=== PATIENT | female | born 1965 | race Caucasian/White ===

== ENCOUNTER 2023-03-27 13:07 | Outpatient (CLI) | payer OTHER, SELFPAY | END 2023-03-27 13:08 | disposition home or self-care (01) | PROVIDERS: PCP Family Medicine; Referring Provider Family Medicine; Visit Provider Family Medicine | DX: Z00.00 Encounter for general adult medical examination without abnormal findings (principal); E03.9 Hypothyroidism, unspecified; Z13.6 Encounter for screening for cardiovascular disorders | CPT/HCPCS: 80053; 80061; 84443 ==

== ENCOUNTER 2023-12-18 10:17 | Outpatient (CLI) | payer OTHER, SELFPAY ==
--- OUTSIDE RECORDS SUMMARY | 2023-12-18 10:26 | XMS_ITS | Encounter Summary ---
Author Organization [facility] Address [address] [place] [id number] Care Team Providers Care Meat Processor Name Role Phone System, Provider Not In Primary Care Provider Un available Wild Rizo MD Unavailable [phone] Reason for Visit * Reason Comments Clinic Care Coordination - Follow-up FLP /alt results Encounter Details Date Type Department Care Team (Latest Contact Info) Description 09/22/2023 Care Coordination [facility] [address] [place] [id number] Nereida Marshall, RN Clinic Care Coordination - Follow-up (FLP/alt results) Social History Tobacco Use Types Packs/Day Years Used Date Smoking Tobacco: Never Smokeless Tobacco: Never Alcohol Use Standard Drinks/Week Comments Yes 0 (1 standard drink = 0.6 oz pur e alcohol) 5 DRINKS PER WEEK PHQ-2 Answer Date Recorded PHQ-2 Score 0 06/14/2023 Adolescent Education Answer Date Record ed Getting School Help Needed Not on file 04/02 Sex and Gender Information Value Date Recorded Sex Assigned at Not on file Gender Identity Not on file Sexual Orientation Not on file documented as of this encounter Progress Notes * Nereida Marshall RN - 09/22/2023 3:[address] coronary calcium score results from 09/22/23 noted. Pt had 06/14/23 visit with for hypercholesterolemia and a strong family history of premature coronary artery disease and sudden , along with an abnormal ECG. Pt's stress echo 07/14/23 was negative for ischemia. Pt requested further cardiac risk stratification after her stress echo d/t her strong family hx of premature sudden cardiacdeath so ordered the CT calcium score. Pt was started on rosuvastatin 10 mg daily at her visit on 06/14/23, and a 3 month FLP/alt lab was ordered. The FLP lab has not been set up yet. I will route an update on CT calcium score results to . I will have pt set up her FLP lab when I call her with results. Bev CHASE September 22, 2023, 4:00 PM CORONARY ARTERY CALCIUM SCORES: Left main coronary artery: 0 Left anterior descending coronary artery: 85 Circumflex coronary artery: 0 Right coronary artery: 0 TOTAL CALCIUM SCORE: 85 The total Agatston calcium score is 85, placing this individual in the 92 percentile for age and sex matched controls. Please review Radiology report for incidental noncardiac findings that will follow separately IMPRESSION: 1. No significant soft tissue abnormalities identified. 2. Refer to cardiology report regarding cardiac and vascular findings. * Nereida Marshall RN - 09/22/2023 3:55 PM CDT My chart update has been sent to pt regarding 's response to her CT calcium score results. Bev CHASE September 25, 2023, 1:25 PM * Alba Samaniego RN - 09/22/2023 3:55 PM CDT Routed to Dr. Rizo. Further adjustments to statin dosing pending review of lab results. Alba Samaniego RN on 10/12/2023 at 1:50 PM Component Latest Ref Rng 10/09/2023 9:32 AM Cholesterol <200 mg/dL 164 Triglycerides <150 mg/dL 86 HDL Cholesterol >=50 mg/dL 65 LDL Cholesterol Calculated <=100 mg/dL 82 Non HDL Cholesterol <130 mg/dL 99 Patient Fasting? Yes ALT 0 - 50 U/L 51 (H) Legend: (H) High documented in this encounter Miscellaneous Notes * Telephone Encounter - Wild Rizo MD - 10/20/2023 4:35 PM CDT Cholesterol numbers look good to me. Her LDL is appropriately low and she has an excellent HDL. No further medication adjustments at this time. The ALT is borderline high. We will keep an eye on that. I doubt that it will become an issue. She should be on aspirin 81 mg daily as well. Wild Rizo MD * Telephone Encounter - Wild Rizo MD - 09/25/2023 12:46 PM CDT Mild coronary artery disease based on a coronary artery calcification score of 85, all in the LAD. Based on her normal stress test recently, we will continue to treat this situation medically and shoot for an LDL cholesterol less than 100. I will await the results of her upcoming lipid panel and adjust her rosuvastatin accordingly. Wild Rizo MD * Addendum Note - Nereida Marshall RN - 09/22/2023 3:55 PM CDTAddended by: NEREIDA MARSHALL on: 10/23/2023 10:26 AM Modules accepted: Orders documented in this encounter Plan of Treatment Not on file documented as of this encounter Visit Diagnoses Not on filedocumented in this encounter Care Teams Meat Processor Relationship Specialty Start Date End Date System, Provider Not In PCP - General Clinic 06/14/23 Wild Rizo MD [id number] [place] [id number] Assigned Heart and Vascular Provider 06/17/23 documented as of this encounter
--- OUTSIDE RECORDS SUMMARY | 2023-12-18 10:26 | XMS_ITS | Clinical Summary ---
Author Organization [facility] Address [address] [place] [id number] Care Team Providers Care Branch Services Manager Name Role Phone System, Provider Not In Primary Care Provider Un available Wild Rizo MD Unavailable [phone] Allergies No known active allergies Medications Medication Sig Dispensed Refills Start Date End Date Status levothyroxine (SYNTHROID/LEVOTHROID ) 112 MCG tablet Take 112 mcg by mouth daily Active rosuvastatin (CRESTOR) 10 MG tabletIndications:Hyp erlipidemia LDL goal <100 Take 1 tablet (10 mg) by mouth daily 90 tablet 3 06/14/2023 Active aspirin 81 MG EC tablet Take 1 tablet (81 mg) by mouth daily 10/23/2023 Active Encounters Date Type Department Care Team Description 10/09/2023 9:30 AM CDT Lab [facility] Laboratory [address] [place] [phone] Hyperlipidemia LDL goal <100 10/09/2023 Travel 09/22/2023 Care Coordination [facility] [address] [place] [phone] Nereida Clark RN Clinic Care Coordination - Follow-up (FLP/alt results) 09/21/2023 12:31 PM CDT - 09/21/2023 11:59 PM CDT Hospital Encounter [facility] Imaging [id number] [facility] [address] [place] [phone] Wild Rizo MD Family history of ischemic heart disease; Hyperlipidemia LDL goal <100; Nonspecific abnormal electrocardiogram (ECG) (EKG) Discharge Disposition: Home or Self Care 09/21/2023 Travel from Last 3 Months Family History Medical History Relation Comments Myocardial Infarction Brother Coronary Artery Disease Father Hypertension Father Myocardial Infarction Maternal Aunt Myocardial Infarction Maternal Grandfather Myocardial Infarction Maternal Uncle Relation Status Comments Brother (Age 55) Father Maternal Aunt Maternal Grandfather Maternal Uncle Social History Tobacco Use Types Packs/Day Years Used Date Smoking Tobacco: Never Smokeless Tobacco: Never Tobacco Cessation:Counseling Given: Not Answered Alcohol Use Standard Drinks/Week Comments Yes 0 [...] on file Sexual Orientation Not on file Last Filed Vital Signs Vital Sign Reading Time Taken Comments Blood Pressure 146/97 06/14/2023 10:20 AM OPERATOR/ASSISTANT FOREMAN Pulse 70 06/14/2023 10:20 AM OPERATOR/ASSISTANT FOREMAN Temperature - - Respiratory Rate - - Oxygen Saturation - - Inhaled Oxygen Concentration - - Weight 60.2 kg (132 lb 11.2 oz) 023 10:20 AM OPERATOR/ASSISTANT FOREMAN Height 160 cm (5' 3) 06/14/2023 10:20 AM OPERATOR/ASSISTANT FOREMAN Body Mass Index 23.51 06/14/2023 10:20 AM OPERATOR/ASSISTANT FOREMAN Plan of Treatment Health Maintenance Due Date Last Done Comments ADVANCE CARE PLANNING 1966 ANNUAL REVIEW OF HM ORDERS 1966 CT COLONOGRAPHY 1966 FIT 1966 FLEX SIG 1966 sDNA (Cologuard) 1966 HIV SCREENING 1981 HEPATITIS C SCREENING 1984 HEPATITIS B IMMUNIZATION (1 of 3 - 19+ 3-dose series) 1985 ZOSTER IMMUNIZATION (1 of 2) 2016 TSH W/FREE T4 REFLEX 07/06/2021 07/06/2020 PHQ-2 (once per calendar year) 2023 06/14/2023 YEARLY PREVENTIVE VISIT 06/05/2024 06/05/20 23, 04/18/2022, 04/10/2020 LIPID 10/08/2024 10/09/2023, 05/11, 07/06/2020 MAMMO SCREENING 08/29/2025 08/29/2023, 02/2 , 08/04/2022, Additional history exists GLUCOSE 06/05/2026 06/05/2023, 07/06/2020 HPV TEST 06/05/2028 06/05/2023 PAP 06/05/2028 06/05/2023 COLONOSCOPY 09/10/2029 09/11/2019 COLORECTAL CANCER SCREENING 09/10/2029 DTAP/TDAP/TD IMMUNIZATION (3 - Td or Tdap) 03/27/2031 03/27/2021, 05/23/2007 COVID-19 Vaccine Completed 04/17/2023, 09/2021, 05/10/2021, Additional history exists INFLUENZA VACCINE Completed 05/08/2023, , 05/03/2021, Additional history exists HPV IMMUNIZATION Aged Out No longer e ligible based on patient's age to complete this topic IPV IMMUNIZATION Aged Out No longer e ligible based on patient's age to complete this topic MENINGITIS IMMUNIZATION Aged Out No l onger eligible based on patient's age to complete this topic Pneumococcal Vaccine: Pediatrics (0 to 5 Years) and At-Risk Patients (6 to 64 Years) Aged Out No longer eligible based on patient's age to complete this topic RSV MONOCLONAL ANTIBODY Aged Out No l onger eligible based on patient's age to complete this topic Procedures Procedure Name Priority Date/Time Associated Diagnosis Comments ALT Routine 10/09/2023 9:32 AM CDT Hyperlipidemia LDL goal <100 LIPID PROFILE Routine 10/09/2023 9:32 AM CDT Hyperlipidemia LDL goal <100 CT CALCIUM SCREENING Routine 09/21/2023 12:57 PM CDT Family history of ischemic heart disease Hyperlipidemia LDL goal <100 Nonspecific abnormal electrocardiogram (ECG) (EKG) RADIOLOGIST CONSULT FOR CARDIOLOGY Routine 09/21/2023 12:57 PM CDT Family history of ischemic heart disease Hyperlipidemia LDL goal <100 Nonspecific abnormal electrocardiogram (ECG) (EKG) MA SCREENING BILATERAL W/ MARINO Routine 08/29/2023 8:15 AM OPERATOR/ASSISTANT FOREMAN GYNECOLOGIC CYTOLOGY Routine 06/05/2023 4:04 PM OPERATOR/ASSISTANT FOREMAN Encounter for gynecological examination (general) (routine) without abnormal findings HPV HIGH RISK TYPES DNA CERVICAL Routine 06/05/2023 4:04 PM OPERATOR/ASSISTANT FOREMAN Encounter for gynecological examination (general) (routine) without abnormal findings COMPREHENSIVE METABOLIC PANEL Routine 06/05/2023 3:15 PM OPERATOR/ASSISTANT FOREMAN Encounter for screening, unspecified TSH Routine 07/06/2020 from Last 3 Months or Most Recently Relevant to Health Maintenance Results * Lipid Profile (10/09/2023 9:32 AM CDT) Pathologist [facility] Cholesterol 164 <200 mg/dL 10/09/2023 2:37 PM CDT [facility] Triglycerides 86 <150 mg/dL 10/09/2023 2:37 PM CDT [facility] Direct Measure HDL 65 >=50 mg/dL 2023 2:37 PM CDT [facility] LDL Cholesterol Calculated 82 <=100 mg/dL 10/09/2023 2:37 PM CDT [facility] Non HDL Cholesterol 99 <130 mg/dL 10/09/2023 2:37 PM CDT [facility] Patient Fasting > 8hrs? Yes 10/09/2023 2:37 PM CDT [facility] Blood BLOOD SPECIMEN / Unknown Venipuncture / Unknown 10/09/2023 9:32 AM CDT 10/09/2023 9:32 AM CDT Narrative [facility] - 10/09/2023 2:37 PM CDT Cholesterol Desirable: ??<200 mg/dL Triglycerides Normal: ??Less than 150 mg/dL Borderline High: ??150-199 mg/dL High: ??200-499 mg/dL Very High: ??Greater than or equal to 500 mg/dL Direct Measure HDL Female: ??Greater than or equal to 50 mg/dL Male: ??Greater than or equal to 40 mg/dL LDL Cholesterol Desirable: ??<100mg/dL Above Desirable: ??100-129 mg/dL Borderline High: ??130-159 mg/dL High: ??160-189 mg/dL Very High: ??>= 190 mg/dL Non HDL Cholesterol Desirable: ??130 mg/dL Above Desirable: ??130-159 mg/dL Borderline High: ??160-189 mg/dL High: ??190-219 mg/dL Very High: ??Greater than or equal to 220 mg/dL Wild Rizo MD LAB - BLOOD ORDERABL ES Performing Organization Address City/[facility] Co de Phone Number LABORATORY [facility] [place] [facility] [address] [facility], [address] * (ABNORMAL) ALT (10/09/2023 9:32 AM CDT) ALT 51(H) 0 - 50 U/L 10/09/2023 2:3 7 PM CDT [facility] Blood BLOOD SPECIMEN / Unknown Venipuncture / Unknown 10/09/2023 9:32 AM CDT 10/09/2023 9:32 AM CDT Wild Rizo MD LAB - BLOOD ORDERABL ES Performing Organization Address [facility] de Phone Number LABORATORY [facility] Core Lab [address] [facility], [address] [place] [address] * Radiologist Consult For Cardiology (09/21/2023 12:57 PM CDT) Anatomical Region Laterality Modality Computed Tomogra phy Impressions 09/21/2023 3:50 PM CDT IMPRESSION: 1. ??No significant soft tissue abnormalities identified. 2. ??Refer to cardiology report regarding cardiac and vascular findings. DARIANA PRIEST MD SYSTEM ID: ??[id number] Narrative 09/21/2023 3:50 PM CDT RADIOLOGIST CONSULT FOR CARDIOLOGY 09/21/2023 12:57 PM CLINICAL HISTORY: Family history of ischemic heart disease. Hyperlipidemia LDL goal <100. Nonspecific abnormal electrocardiogram (ECG) (EKG). TECHNIQUE: Limited CT chest without IV contrast. ??Technique and protocol were ordered per the cardiology service. Dose reduction techniques were used. CONTRAST: None. COMPARISON: None. FINDINGS: This is radiology assessment of non-cardiology findings. Please refer to cardiology report for additional cardiac and vascular findings. LUNGS AND PLEURA: Lungs are clear. No pleural effusion. MEDIASTINUM/AXILLAE: No lymphadenopathy. No significant abnormality. UPPER ABDOMEN: No significant finding. MUSCULOSKELETAL: Unremarkable. Procedure Note Dariana Priest MD - 09/21/2023 RADIOLOGIST CONSULT FOR CARDIOLOGY 09/21/2023 12:57 PM CLINICAL HISTORY: Family history of ischemic heart disease. Hyperlipidemia LDL goal <100. Nonspecific abnormal electrocardiogram (ECG) (EKG). TECHNIQUE: Limited CT chest without IV contrast. Technique and protocol were ordered per the cardiology service. Dose reduction techniques were used. CONTRAST: None. COMPARISON: None. FINDINGS: This is radiology assessment of non-cardiology findings. Please refer to cardiology report for additional cardiac and vascular findings. LUNGS AND PLEURA: Lungs are clear. No pleural effusion. MEDIASTINUM/AXILLAE: No lymphadenopathy. No significant abnormality. UPPER ABDOMEN: No significant finding. MUSCULOSKELETAL: Unremarkable. IMPRESSION: 1. No significant soft tissue abnormalities identified. 2. Refer to cardiology report regarding cardiac and vascular findings. DARIANA PRIEST MD SYSTEM ID: [id number] Wild Rizo MD IMG DIAGNOSTIC IMAGI NG ORDERABLES * CT Coronary Calcium Scan (09/21/2023 12:57 PM CDT) Anatomical Region Laterality Modality Chest, P CT CTA Computed Tomog tisha Narrative 09/21/2023 3:42 PM CDT Procedure: CT CALCIUM SCREENING Examination Date: 09/21/2023 12:57 PM Clinical Information: Family history of ischemic heart disease; Hyperlipidemia LDL goal <100; Nonspecific abnormal electrocardiogram (ECG) (EKG) Ordering Provider: Dr. Rizo PROCEDURE: High-resolution, ECG synchronized multi-slice computed tomography was performed without incident. Coronary calcification was analyzed using [employer] calcium scoring software. Scan protocol was optimized to minimize radiation exposure. The total radiation exposure was calculated to be 32 DLP and 0.448 mSv. FINDINGS: Overall quality of the study: Adequate. CORONARY ARTERY CALCIUM SCORES: Left main coronary artery: 0 Left anterior descending coronary artery: 85 Circumflex coronary artery: 0 Right coronary artery: 0 TOTAL CALCIUM SCORE: 85 The total Agatston calcium score is 85, placing this individual in the 92 percentile for age and sex matched controls. Please review Radiology report for incidental noncardiac findings that will follow separately BACKGROUND A coronary artery calcium (CAC) score is a measurement of the amount of calcium (hard plaque) in the diez of the arteries that supply the heart muscle. Numerous studies have indicated that this test is a reliable measure of risk for adverse cardiovascular events, such as heart attack and stroke. ? MANAGEMENT The [employer] Heart Association/Swedish College of Cardiology (AHA/ACC) 2018 Guideline on the Management of Blood Cholesterol states: ?If CAC is zero, treatment with statin therapy may be withheld or delayed, except in certain very high-risk individuals such as cigarette smokers, those with diabetes mellitus, and those with a strong family history of premature atherosclerotic disease. A CAC score of 1 to 99 favors statin therapy, especially in those ?55 years of age. For any patient, if the CAC score is ?100 Agatston units or ?75th percentile, statin therapy is indicated unless otherwise deferred by the outcome of clinician-patient risk discussion.? ? The Society of Cardiovascular CT (SCCT) CAC guideline recommends the following: CAC score 0: statin is generally not recommended CAC score 1-99: moderate-intensity statin generally recommended CAC score 100-299: moderate to high-intensity statin + Aspirin 81mg CAC score >300: high intensity statin + Aspirin 81mg ? GENERAL RECOMMENDATIONS Adoption and maintenance of a healthy lifestyle is recommended for all people. This should include regular, appropriate exercise and observance of a proper diet, to ensure balanced nutrition and weight control. Tobacco use should be avoided. Cholesterol has been linked to coronary atherosclerosis, and we strongly encourage adhering to the recommendations of the 2018 ACC/AHA guidelines on the Management of Blood Cholesterol. For primary prevention, these include calculation of 10-year ASCVD risk and initiation of statin therapy based on estimated ASCVD risk and LDL cholesterol. The VILLANUEVA risk score, which combines traditional risk factors and CAC, is available online on the VILLANUEVA website (https://www.villanueva-[email or web address]/MESACHDRisk/MesaRiskScore/RiskScore.aspx). (Seun LINDSAY, et al. J Am Jessie Cardiol. 2015 Apr 13;66(15):1643-53.) ? However, note that these are general recommendations only, and as with all such matters, the personal physician should be consulted regarding recommendations appropriate for the individual. If further guidance is needed, you can schedule an appointment with one of our Preventive Cardiologists ([email or web address]). ? References: 1. 2018 AHA/ACC/AACVPR/AAPA/ABC/ACPM/ADA/AGS/APhA/ASPC/NLA/PCNA Guideline on the Management of Blood Cholesterol 2. CAC-DRS: Coronary Artery Calcium Data and Reporting System. An expert consensus document of the Society of Cardiovascular Computed Tomography (SCCT) link BRIAN NATION MD Procedure Note Brian Nation MD - 09/21/2023 Procedure: CT CALCIUM SCREENING Examination Date: 09/21/2023 12:57 PM Clinical Information: Family history of ischemic heart disease; Hyperlipidemia LDL goal <100; Nonspecific abnormal electrocardiogram (ECG) (EKG) Ordering Provider: Dr. Rizo PROCEDURE: High-resolution, ECG synchronized multi-slice computed tomography was performed without incident. Coronary calcification was analyzed using [employer] calcium scoring software. Scan protocol was optimized to minimize radiation exposure. The total radiation exposure was calculated to be 32 DLP and 0.448 mSv. FINDINGS: Overall quality of the study: Adequate. CORONARY ARTERY CALCIUM SCORES: Left main coronary artery: 0 Left anterior descending coronary artery: 85 Circumflex coronary artery: 0 Right coronary artery: 0 TOTAL CALCIUM SCORE: 85 The total Agatston calcium score is 85, placing this individual in the 92 percentile for age and sex matched controls. Please review Radiology report for incidental noncardiac findings that will follow separately BACKGROUND A coronary artery calcium (CAC) score is a measurement of the amount of calcium (hard plaque) in the diez of the arteries that supply the heart muscle. Numerous studies have indicated that this test is a reliable measure of risk for adverse cardiovascular events, such as heart attack and stroke. ? MANAGEMENT The Swedish Heart Association/Swedish College of Cardiology (AHA/ACC) 2018 Guideline on the Management of Blood Cholesterol states: ?If CAC is zero, treatment with statin therapy may be withheld or delayed, except in certain very high-risk individuals such as cigarette smokers, those with diabetes mellitus, and those with a strong family history of premature atherosclerotic disease. A CAC score of 1 to 99 favors statin therapy, especially in those ?55 years of age. For any patient, if the CAC score is ?100 Agatston units or ?75th percentile, statin therapy is indicated unless otherwise deferred by the outcome of clinician-patient risk discussion.? ? The Society of Cardiovascular CT (SCCT) CAC guideline recommends the following: CAC score 0: statin is generally not recommended CAC score 1-99: moderate-intensity statin generally recommended CAC score 100-299: moderate to high-intensity statin + Aspirin 81mg CAC score >300: high intensity statin + Aspirin 81mg ? GENERAL RECOMMENDATIONS Adoption and maintenance of a healthy lifestyle is recommended for all people. This should include regular, appropriate exercise and observance of a proper diet, to ensure balanced nutrition and weight control. Tobacco use should be avoided. Cholesterol has been linked to coronary atherosclerosis, and we strongly encourage adhering to the recommendations of the 2018 ACC/AHA guidelines on the Management of Blood Cholesterol. For primary prevention, these include calculation of 10-year ASCVD risk and initiation of statin therapy based on estimated ASCVD risk and LDL cholesterol. The VILLANUEVA risk score, which combines traditional risk factors and CAC, is available online on the VILLANUEVA website (https://www.villanueva-[email or web address]/MESACHDRisk/MesaRiskScore/RiskScore.aspx). (Seun RL, et al. J Am Jessie Cardiol. 2015 Apr 13;66(15):1643-53.) ? However, note that these are general recommendations only, and as with all such matters, the personal physician should be consulted regarding recommendations appropriate for the individual. If further guidance is needed, you can schedule an appointment with one of our Preventive Cardiologists ([email or web address]). ? References: 1. 2018 AHA/ACC/AACVPR/AAPA/ABC/ACPM/ADA/AGS/APhA/ASPC/NLA/PCNA Guideline on the Management of Blood Cholesterol 2. CAC-DRS: Coronary Artery Calcium Data and Reporting System. An expert consensus document of the Society of Cardiovascular Computed Tomography (SCCT) link BRIAN NATION MD Wild Rizo MD IMG CT ORDERABLES * Gynecologic Cytology (PAP) (06/05/2023 4:04 PM OPERATOR/ASSISTANT FOREMAN) Interpretation Negative for Intraepithelial Lesion or Malignancy (NILM) 06/07/2023 4:05 PM OPERATOR/ASSISTANT FOREMAN [facility] Comment Papanicolaou Test Limitations: Cervical cytology is a screening test with limited sensitivity, and regular screening is critical for cancer prevention. Pap tests are primarily effective for the diagnosis/prevent ion of squamous cell carcinoma, not adenocarcinoma or other cancers. 06/07/2023 4:05 PM OPERATOR/ASSISTANT FOREMAN [facility] Specimen Adequacy Satisfactory for evaluation, endocerv/transfor mation zone component absent, atrophy 06/07/2023 4:05 PM OPERATOR/ASSISTANT FOREMAN [facility] Clinical Information post-menopausal 06/07/2023 4:05 PM OPERATOR/ASSISTANT FOREMAN [facility] LMP/Menopause Date NONE 06/07/2023 4:05 PM OPERATOR/ASSISTANT FOREMAN [facility] Reflex Testing Yes regardless of result 06/07/2023 4:05 PM OPERATOR/ASSISTANT FOREMAN [facility] Previous Abnormal? No 06/07/2023 4:05 PM OPERATOR/ASSISTANT FOREMAN [facility] Previous Abnormal Diagnosis NEGATIVE 06/07/2023 4:05 PM OPERATOR/ASSISTANT FOREMAN [facility] Performing Labs The technical component of this testing was completed at [facility] 06/07/2023 4:05 PM OPERATOR/ASSISTANT FOREMAN [facility] Brushing CERVIX UTERI STRUCTURE / Unknown 06/05/2023 4:04 PM OPERATOR/ASSISTANT FOREMAN 06/05/2023 10:40 PM OPERATOR/ASSISTANT FOREMAN [facility] Specialty Lab [address] [facility] [address] [facility], [address] [place] [address], [facility] [phone] * HPV High Risk Types DNA Cervical (06/05/2023 4:04 PM OPERATOR/ASSISTANT FOREMAN) Other HR HPV Negative Negative 06/08/2023 3:03 PM OPERATOR/ASSISTANT FOREMAN [facility] HPV16 DNA Negative Negative 06/08/2023 3:03 PM OPERATOR/ASSISTANT FOREMAN [facility] HPV18 DNA Negative Negative 06/08/2023 3:03 PM OPERATOR/ASSISTANT FOREMAN [facility] FINAL DIAGNOSIS This patient's sample is negative for HPV DNA. This test was developed and its performance characteristics determined by the [facility], [facility] Laboratory. It has not been cleared or approved by the FDA. The laboratory is regulated under CLIA as qualified to perform high-complexity testing. This test is used for clinical purposes. It should not be regarded as investigational or for research. METHODOLOGY: The Nani Shirlene 4800 system uses automated extraction, simultaneous amplification of HPV (L1 region) and beta-globin, followed by real time detection of fluorescent labeled HPV and beta globin using specific oligonucleotide probes. The test specifically identifies types HPV 16 DNA and HPV 18 DNA while concurrently detecting the rest of the high risk types (31, 33, 35, 39, 45, 51, 52, 56, 58, 59, 66 or 68). COMMENTS: This test is not intended for use as a screening device for woman under age 30 with normal cervical cytology. Results should be correlated with cytologic and histologic findings. Close clinical followup is recommended. 06/08/2023 3:03 PM OPERATOR/ASSISTANT FOREMAN [employer] [facility] Brushing CERVIX UTERI STRUCTURE / Unknown Non-blood Collection / Unknown 06/05/2023 4:04 PM OPERATOR/ASSISTANT FOREMAN 06/08/2023 8:11 AM OPERATOR/ASSISTANT FOREMAN Keshia Lowe MD LAB - BLOOD [facility] [address] [facility], [address] [address], [facility] [phone] * Comprehensive metabolic panel (06/05/2023 3:15 PM OPERATOR/ASSISTANT FOREMAN) Sodium 141 135 - 145 mmol/L 06/05/2023 11:31 PM OPERATOR/ASSISTANT FOREMAN [facility] Comment:Reference intervals for this test were updated on 04/04/2023 to more accurately reflect our healthy population. There may be differences in the flagging of prior results with similar values performed with this method. Interpretation of those prior results can be made in the context of the updated reference intervals. Potassium 4.2 3.4 - 5.3 mmol/L 06/05/2023 11:31 PM OPERATOR/ASSISTANT FOREMAN [facility] Carbon Dioxide (CO2) 27 22 - 29 mmol/L 06/05/2023 11:31 PM OPERATOR/ASSISTANT FOREMAN [facility] Anion Gap 10 7 - 15 mmol/L 06/05/2023 11:31 PM OPERATOR/ASSISTANT FOREMAN [facility] Urea Nitrogen 6.1 6.0 - 20.0 mg/dL 06/05/2023 11:31 PM OPERATOR/ASSISTANT FOREMAN [facility] Creatinine 0.62 0.51 - 0.95 mg/dL 06/05/2023 11:31 PM OPERATOR/ASSISTANT FOREMAN [facility] GFR Estimate >90 >60 mL/min/1. 73m2 06/05/2023 11:31 PM OPERATOR/ASSISTANT FOREMAN [facility] Calcium 9.7 8.6 - 10.0 mg/dL 06/05/2023 11:31 PM OPERATOR/ASSISTANT FOREMAN [facility] Chloride 104 98 - 107 mmol/L 06/05/2023 11:31 PM OPERATOR/ASSISTANT FOREMAN [facility] Glucose 87 70 - 99 mg/dL 06/05/2023 11:31 PM OPERATOR/ASSISTANT FOREMAN [facility] Alkaline Phosphatase 50 40 - 150 U/L 06/05/2023 11:31 PM OPERATOR/ASSISTANT FOREMAN [facility] Comment:Reference intervals for this test were updated on 05/23/2023 to more accurately reflect our healthy population. There may be differences in the flagging of prior results with similar values performed with this method. Interpretation of those prior results can be made in the context of the updated reference intervals. AST 37 0 - 45 U/L 06/05/2023 11:31 PM OPERATOR/ASSISTANT FOREMAN [facility] Comment:Reference intervals for this test were updated on 12/19/2022 to more accurately reflect our healthy population. There may be differences in the flagging of prior results with similar values performed with this method. Interpretation of those prior results can be made in the context of the updated reference intervals. ALT 35 0 - 50 U/L 06/05/2023 11:31 PM OPERATOR/ASSISTANT FOREMAN [facility] Comment:Reference intervals for this test were updated on 12/19/2022 to more accurately reflect our healthy population. There may be differences in the flagging of prior results with similar values performed with this method. Interpretation of those prior results can be made in the context of the updated reference intervals. Protein Total 7.3 6.4 - 8.3 g/dL 06/05/2023 11:31 PM OPERATOR/ASSISTANT FOREMAN [facility] Albumin 4.7 3.5 - 5.2 g/dL 06/05/2023 11:31 PM OPERATOR/ASSISTANT FOREMAN [facility] Bilirubin Total 0.6 <=1.2 mg/dL 06/05/2023 11:31 PM OPERATOR/ASSISTANT FOREMAN [facility] Blood BLOOD SPECIMEN / Unknown Client Draw / Unknown 06/05/2023 3:15 PM OPERATOR/ASSISTANT FOREMAN 06/05/2023 9:55 PM OPERATOR/ASSISTANT FOREMAN Keshia Lola Lowe MD LAB - BLOOD ORDAshleigh ESCALERA [facility] [place] [facility] [address] [facility], [address] [place] [address], [facility] [phone] * (ABNORMAL) TSH (07/06/2020) TSH 0.245(A) 0.358 - 3.740 UIU/mL [facility] Blood specimen (specimen) 07/06/2020 Narrative [facility] - 07/06/2020 LAB RESULT MICHAEL COOLEY Provider Outside LAB - BLOOD ORDERABL ES [facility] [address] [id number] [phone] from Last 3 Months or Most Recently Relevant to Health Maintenance Care Teams Branch Services Manager Relationship Specialty Start Date End Date System, Provider Not In PCP - General Clinic 06/14/23 iWld Rizo MD [address] [place] [id number] Assigned Heart and Vascular Provider 06/17/23
--- OUTSIDE RECORDS SUMMARY | 2023-12-18 10:26 | XMS_ITS | Encounter Summary ---
Author Organization [place] Address [address] [place] [address] Care Team Providers Care Veneer Supervisor Name Role Phone System, Provider Not In Primary Care Provider Un available Wild Rizo MD Unavailable [phone] Reason for Visit * Reason Onset Date Comments Call Back 06/30/2023 Scheduling Encounter Details Date Type Department Care Team (Late st Contact Info) Description 06/30/2023 [facility] Heart [address] [place] [address] Unknown Call Back (Scheduling) Social History Tobacco Use Types Packs/Day Years [...] on file documented as of this encounter Miscellaneous Notes * Telephone Encounter - Raza Armenta - 06/30/2023 3:43 PM CST [facility] Call Center Phone Message May a detailed message be left on voicemail: yes Reason for Call: Other: Cardiology Action Taken: Other: .sac Travel Screening: Not Applicable Thank you! [facility] NESS MANAGEMENT ASSOCIATE documented in this encounter Plan of Treatment Not on file documented as of this encounter Visit Diagnoses Not on filedocumented in this encounter Care Teams Veneer Supervisor Relationship Specialty Start Date End Date System, Provider Not In PCP - General Clinic 06/14/23 Wild Rizo MD [address] [place] [address] Assigned Heart and Vascular Provider 06/17/23 documented as of this encounter
--- OUTSIDE RECORDS SUMMARY | 2023-12-18 10:26 | XMS_ITS | Referral Summary ---
Author Organization [place] Address [address] [place] [address] Care Team Providers Care Manager Services Name Role Phone System, Provider Not In Primary Care Provider Un available Wild Rizo MD Unavailable [phone] Encounters Date Type Department Care Team Description 10/09/2023 Travel 10/09/2023 9:30 AM CDT Lab [facility] [address] [place] [phone] Hyperlipidemia LDL goal <100 09/22/2023 Care Coordination [facility] Heart [facility] [address] [facility] [address] [place] [phone] Nereida Clark RN Clinic Care Coordination - Follow-up (FLP/alt results) 09/21/2023 Travel 09/21/2023 12:31 PM CDT - 09/21/2023 11:59 PM CDT Hospital Encounter [facility] [address] [facility] [address] [place] [phone] Wild Rizo MD Family history of ischemic heart disease; Hyperlipidemia LDL goal <100; Nonspecific abnormal electrocardiogram (ECG) (EKG) Discharge Disposition: Home or Self Care from Last 3 Months Allergies No known active allergies Medications Medication [...] (81 mg) by mouth daily 10/23/2023 Active Social History Tobacco Use Types Packs/Day Years [...] Comments Blood Pressure 146/97 06/14/2023 10:20 AM CERTIFIED SOLID WASTE FACILITY OPERATOR Pulse 70 06/14/2023 10:20 AM CERTIFIED SOLID WASTE FACILITY OPERATOR Temperature - - Respiratory Rate - - Oxygen Saturation - - Inhaled Oxygen Concentration - - Weight 60.2 kg (132 lb 11.2 oz) 023 10:20 AM CERTIFIED SOLID WASTE FACILITY OPERATOR Height 160 cm (5' 3) 06/14/2023 10:20 AM CERTIFIED SOLID WASTE FACILITY OPERATOR Body Mass Index 23.51 06/14/2023 10:20 AM CERTIFIED SOLID WASTE FACILITY OPERATOR Plan of Treatment Not on file Procedures Procedure Name Priority Date/Time Associated Diagnosis [...] BILATERAL W/ MARINO Routine 08/29/2023 8:15 AM CERTIFIED SOLID WASTE FACILITY OPERATOR GYNECOLOGIC CYTOLOGY Routine 06/05/2023 4:04 PM CERTIFIED SOLID WASTE FACILITY OPERATOR Encounter for gynecological examination (general) (routine) without abnormal findings HPV HIGH RISK TYPES DNA CERVICAL Routine 06/05/2023 4:04 PM CERTIFIED SOLID WASTE FACILITY OPERATOR Encounter for gynecological examination (general) (routine) without abnormal findings COMPREHENSIVE METABOLIC PANEL Routine 06/05/2023 3:15 PM CERTIFIED SOLID WASTE FACILITY OPERATOR Encounter for screening, unspecified TSH Routine 07/06/2020 from Last 3 Months or Most Recently Relevant to Health Maintenance Results * Lipid Profile (10/09/2023 9:32 AM CDT) Pathologist [facility] Cholesterol 164 <200 mg/dL 10/09/2023 2:37 PM [...] - BLOOD ORDERABL ES Performing Organization Address City/[facility]/ZIP Co de Phone Number [facility] [place] Core Lab [address] [facility], [address] * (ABNORMAL) ALT (10/09/2023 9:32 AM CDT) ALT 51(H) 0 - 50 U/L 10/09/2023 2:3 7 PM CDT [facility] Blood BLOOD SPECIMEN / Unknown Venipuncture / Unknown 10/09/2023 9:32 AM CDT 10/09/2023 9:32 AM CDT Wild Rizo MD LAB - BLOOD ORDERABL ES Performing Organization Address City/[facility] Co de Phone Number LABORATORY [facility] Core Lab [address] [facility], [address] * Radiologist Consult For Cardiology (09/21/2023 12:57 PM CDT) Anatomical Region Laterality Modality Computed Tomogra phy Impressions 09/21/2023 3:50 PM CDT IMPRESSION: 1. ??No significant soft tissue abnormalities identified. 2. ??Refer to cardiology report regarding cardiac and vascular findings. DARIANA GRAMAJO MD SYSTEM ID: ??[id number] Narrative 09/21/2023 3:50 PM CDT RADIOLOGIST CONSULT [...] significant finding. MUSCULOSKELETAL: Unremarkable. Procedure Note Dariana Gramajo MD - 09/21/2023 RADIOLOGIST CONSULT FOR CARDIOLOGY [...] report regarding cardiac and vascular findings. DARIANA GRAMAJO MD SYSTEM ID: [id number] Wild Rizo MD IMG DIAGNOSTIC IMAGI NG ORDERABLES * CT Coronary Calcium Scan (09/21/2023 12:57 PM CDT) Anatomical Region Laterality Modality Chest, UMP CT CTA Computed Tomog tisha Narrative 09/21/2023 3:42 PM CDT Procedure: CT CALCIUM SCREENING Examination Date: 09/21/2023 12:57 PM Clinical Information: Family history of ischemic heart disease; Hyperlipidemia LDL goal <100; Nonspecific abnormal electrocardiogram (ECG) (EKG) Ordering Provider: Dr. Rizo PROCEDURE: High-resolution, ECG synchronized multi-slice computed tomography was performed without incident. Coronary calcification was analyzed using Wellkeeper calcium scoring software. Scan protocol was optimized [...] heart attack and stroke. ? MANAGEMENT The [place] [employer] Association/[place] College of Cardiology (AHA/ACC) 2018 Guideline on [...] al. J Am Jessie Cardiol. 2015 Apr 21;66(15):1643-53.) ? However, note that these are general recommendations only, and as with all such matters, the personal physician should be consulted regarding recommendations appropriate for the individual. If further guidance is needed, you can schedule an appointment with one of our Preventive Cardiologists ([email or web address]). ? References: 1. 2018 AHA/ACC/AACVPR/AAPA/ABC/ACPM/ADA/AGS/APhA/ASPC/NLA/PCNA Guideline on the Management of Blood Cholesterol 2. CAC-DRS: Coronary Artery Calcium Data and Reporting System. An expert consensus document of the Society of Cardiovascular Computed Tomography (SCCT) link BRIAN RODRÍGUEZ MD Procedure Note Brian Rodríguez MD - 09/21/2023 Procedure: CT CALCIUM SCREENING Examination Date: 09/21/2023 12:57 PM Clinical Information: Family history of ischemic heart disease; Hyperlipidemia LDL goal <100; Nonspecific abnormal electrocardiogram (ECG) (EKG) Ordering Provider: Dr. Rizo PROCEDURE: High-resolution, ECG synchronized multi-slice computed tomography was performed without incident. Coronary calcification was analyzed using Wellkeeper calcium scoring software. Scan protocol was optimized [...] heart attack and stroke. ? MANAGEMENT The [place] [employer]/[place] College of Cardiology (AHA/ACC) 2018 Guideline on [...] al. J Am Jessie Cardiol. 2015 Apr 21;66(15):1643-53.) ? However, note that these are general recommendations only, and as with all such matters, the personal physician should be consulted regarding recommendations appropriate for the individual. If further guidance is needed, you can schedule an appointment with one of our Preventive Cardiologists ([email or web address]). ? References: 1. 2018 AHA/ACC/AACVPR/AAPA/ABC/ACPM/ADA/AGS/APhA/ASPC/NLA/PCNA Guideline on the Management of Blood Cholesterol 2. CAC-DRS: Coronary Artery Calcium Data and Reporting System. An expert consensus document of the Society of Cardiovascular Computed Tomography (SCCT) link BRIAN RODRÍGUEZ MD Wild Rizo MD IMG CT ORDERABLES * Gynecologic Cytology (PAP) (06/05/2023 4:04 PM CERTIFIED SOLID WASTE FACILITY OPERATOR) Interpretation Negative for Intraepithelial Lesion or Malignancy (NILM) 06/07/2023 4:05 PM CERTIFIED SOLID WASTE FACILITY OPERATOR [facility] Comment Papanicolaou Test Limitations: Cervical cytology is a screening test with limited sensitivity, and regular screening is critical for cancer prevention. Pap tests are primarily effective for the diagnosis/prevent ion of squamous cell carcinoma, not adenocarcinoma or other cancers. 06/07/2023 4:05 PM CERTIFIED SOLID WASTE FACILITY OPERATOR [facility] Specimen Adequacy Satisfactory for evaluation, endocerv/transfor mation zone component absent, atrophy 06/07/2023 4:05 PM CERTIFIED SOLID WASTE FACILITY OPERATOR [facility] Clinical Information post-menopausal 06/07/2023 4:05 PM CERTIFIED SOLID WASTE FACILITY OPERATOR [facility] LMP/Menopause Date NONE 06/07/2023 4:05 PM CERTIFIED SOLID WASTE FACILITY OPERATOR [facility] Reflex Testing Yes regardless of result 06/07/2023 4:05 PM CERTIFIED SOLID WASTE FACILITY OPERATOR [facility] Previous Abnormal? No 06/07/2023 4:05 PM CERTIFIED SOLID WASTE FACILITY OPERATOR [facility] Previous Abnormal Diagnosis NEGATIVE 06/07/2023 4:05 PM CERTIFIED SOLID WASTE FACILITY OPERATOR [facility] Performing Labs The technical component of this testing was completed at [facility] 06/07/2023 4:05 PM CERTIFIED SOLID WASTE FACILITY OPERATOR [facility] Brushing CERVIX UTERI STRUCTURE / Unknown 06/05/2023 4:04 PM CERTIFIED SOLID WASTE FACILITY OPERATOR 06/05/2023 10:40 PM CERTIFIED SOLID WASTE FACILITY OPERATOR Keshia Lola Lowe MD LAB - [place] [facility] Specialty Lab [address] [facility], [address] [address], [facility] [phone] * HPV High Risk Types DNA Cervical (06/05/2023 4:04 PM CERTIFIED SOLID WASTE FACILITY OPERATOR) Other HR HPV Negative Negative 06/08/2023 3:03 PM CERTIFIED SOLID WASTE FACILITY OPERATOR MOLEC[facility] DIAGNOSTICS HPV16 DNA Negative Negative 06/08/2023 3:03 PM CERTIFIED SOLID WASTE FACILITY OPERATOR MOLECULAR DIAGNOSTICS HPV18 DNA Negative Negative 06/08/2023 3:03 PM CERTIFIED SOLID WASTE FACILITY OPERATOR MOLECULAR DIAGNOSTICS FINAL DIAGNOSIS This patient's sample is negative for HPV DNA. This test was developed and its performance characteristics determined by the [facility], Molecular Diagnostics Laboratory. It has not [...] clinical followup is recommended. 06/08/2023 3:03 PM CERTIFIED SOLID WASTE FACILITY OPERATOR MOLECULAR DIAGNOSTICS Brushing CERVIX UTERI STRUCTURE / Unknown Non-blood Collection / Unknown 06/05/2023 4:04 PM CERTIFIED SOLID WASTE FACILITY OPERATOR 06/08/2023 8:11 AM CERTIFIED SOLID WASTE FACILITY OPERATOR Keshia Lola Lowe MD LAB - BLOOD LILLY ESCALERA [facility] [employer] [facility] [address] [facility], [address] [address], [facility] [phone] * Comprehensive metabolic panel (06/05/2023 3:15 PM CERTIFIED SOLID WASTE FACILITY OPERATOR) Sodium 141 135 - 145 mmol/L 06/05/2023 11:31 PM CERTIFIED SOLID WASTE FACILITY OPERATOR [facility] Comment:Reference intervals for this test were updated on 04/04/2023 to more accurately reflect our healthy population. There may be differences in the flagging of prior results with similar values performed with this method. Interpretation of those prior results can be made in the context of the updated reference intervals. Potassium 4.2 3.4 - 5.3 mmol/L 06/05/2023 11:31 PM CERTIFIED SOLID WASTE FACILITY OPERATOR [facility] Carbon Dioxide (CO2) 27 22 - 29 mmol/L 06/05/2023 11:31 PM CERTIFIED SOLID WASTE FACILITY OPERATOR [facility] Anion Gap 10 7 - 15 mmol/L 06/05/2023 11:31 PM CERTIFIED SOLID WASTE FACILITY OPERATOR [facility] Urea Nitrogen 6.1 6.0 - 20.0 mg/dL 06/05/2023 11:31 PM CERTIFIED SOLID WASTE FACILITY OPERATOR [facility] Creatinine 0.62 0.51 - 0.95 mg/dL 06/05/2023 11:31 PM CERTIFIED SOLID WASTE FACILITY OPERATOR [facility] GFR Estimate >90 >60 mL/min/1. 73m2 06/05/2023 11:31 PM CERTIFIED SOLID WASTE FACILITY OPERATOR [facility] Calcium 9.7 8.6 - 10.0 mg/dL 06/05/2023 11:31 PM CERTIFIED SOLID WASTE FACILITY OPERATOR [facility] Chloride 104 98 - 107 mmol/L 06/05/2023 11:31 PM CERTIFIED SOLID WASTE FACILITY OPERATOR [facility] Glucose 87 70 - 99 mg/dL 06/05/2023 11:31 PM CERTIFIED SOLID WASTE FACILITY OPERATOR [facility] Alkaline Phosphatase 50 40 - 150 U/L 06/05/2023 11:31 PM CERTIFIED SOLID WASTE FACILITY OPERATOR [facility] Comment:Reference intervals for this test were updated on 05/23/2023 to more accurately reflect our healthy population. There may be differences in the flagging of prior results with similar values performed with this method. Interpretation of those prior results can be made in the context of the updated reference intervals. AST 37 0 - 45 U/L 06/05/2023 11:31 PM CERTIFIED SOLID WASTE FACILITY OPERATOR [facility] Comment:Reference intervals for this test were updated on 12/19/2022 to more accurately reflect our healthy population. There may be differences in the flagging of prior results with similar values performed with this method. Interpretation of those prior results can be made in the context of the updated reference intervals. ALT 35 0 - 50 U/L 06/05/2023 11:31 PM CERTIFIED SOLID WASTE FACILITY OPERATOR [facility] Comment:Reference intervals for this test were updated on 12/19/2022 to more accurately reflect our healthy population. There may be differences in the flagging of prior results with similar values performed with this method. Interpretation of those prior results can be made in the context of the updated reference intervals. Protein Total 7.3 6.4 - 8.3 g/dL 06/05/2023 11:31 PM CERTIFIED SOLID WASTE FACILITY OPERATOR [facility] Albumin 4.7 3.5 - 5.2 g/dL 06/05/2023 11:31 PM CERTIFIED SOLID WASTE FACILITY OPERATOR [facility] Bilirubin Total 0.6 <=1.2 mg/dL 06/05/2023 11:31 PM CERTIFIED SOLID WASTE FACILITY OPERATOR [facility] Blood BLOOD SPECIMEN / Unknown Client Draw / Unknown 06/05/2023 3:15 PM CERTIFIED SOLID WASTE FACILITY OPERATOR 06/05/2023 9:55 PM CERTIFIED SOLID WASTE FACILITY OPERATOR Keshia Lola Lowe MD LAB - BLOOD ORDE JW [facility] [place] Core Lab [address] [facility], [address] [place] [phone], [facility] [phone] * (ABNORMAL) TSH (07/06/2020) TSH 0.245(A) 0.358 - 3.740 UIU/mL [facility] Blood specimen (specimen) 07/06/2020 Narrative [facility] - 07/06/2020 LAB RESULT MICHAEL COOLEY Provider Outside LAB - BLOOD ORDERABL [place] [facility] [address] [id number] [phone] from Last 3 Months or Most Recently Relevant to Health Maintenance Care Teams Manager Services Relationship Specialty Start Date End Date System, Provider Not In PCP - General Clinic 06/14/23 Wild Rizo MD [address] [place] [address] Assigned Heart and Vascular Provider 06/17/23
--- OUTSIDE RECORDS SUMMARY | 2023-12-18 10:26 | XMS_ITS | Clinical Summary ---
Author Organization [employer] [facility] Address [place], [place] [address] Care Team Providers Care Paper Cone Drying Machine Operator Name Role Phone Clinic, No Pcp Or Primary Care Provider Unavaila ble Allergies No known active allergies Immunizations Name Administration Dates Next Due Tdap 03/27/2021 Family History Medical History Relation Name Comments Cancer-breast Other Pat 1st cousin -45 Cancer-colon No Family History Cancer-ovarian No Family History Cancer-prostate No Family History Relation Name Status Comments Other Social History Tobacco Use Types Packs/Day Years Used Date Smoking Tobacco: Never Smokeless Tobacco: Never Alcohol Use Standard Drinks/Week Comments Not Currently 0 (1 standard drink = 0.6 oz pur e alcohol) Sex and Gender Information Value Date Recorded Sex Assigned at Not on file Gender Identity Not on file Sexual Orientation Not on file Obstetrics History Last Filed Vital Signs Vital Sign Reading Time Taken Comments Blood Pressure 134/94 03/27/2021 6:12 PM CDT Pulse 84 03/27/2021 6:12 PM CDT Temperature 36.8 ??C (98.3 ??F) 03/27/2021 6:12 PM CD T Respiratory Rate 20 03/27/2021 6:12 PM CDT Oxygen Saturation 98% 03/27/2021 6:12 PM CDT Inhaled Oxygen Concentration - - Weight 56.7 kg (125 lb) 03/27/2021 6:12 PM CDT Height 160 cm (5' 3) 03/27/2021 6:12 PM CDT Body Mass Index 22.14 03/27/2021 6:12 PM CDT Plan of Treatment Health Maintenance Due Date Last Done Comments Depression screening for age 12+ 1978 HIV for age 15-65 1981 BMI (ht and wt on same day) for age 18+ 1984 Hepatitis C screening for age 18-79 1984 Pap test for age 21-65 1987 Colonoscopy through age 75 2011 Lipids for age 45-75 2011 Zoster (shingles) series for age 50+ (1 of 2) 2016 Mammogram for age 45-75 05/24/2017 05/24/20 16, 03/06/2015, 11/29/2013, Additional history exists COVID-19 vaccine series (2022-24 season) 2023 10/15/2020, 09/17/2020 Influenza for age 50-64 03/10/2024 Tetanus booster 03/27/2031 03/27/2021 Tdap Completed 03/27/2021 Pneumococcal series for age 6-64 Aged Out No longer eligible based on patient's age to complete this topic Procedures Procedure Name Priority Date/Time Associated Diagnosis Comments XR MAMMO MARINO BILAT SCREEN Routine 05/24/2016 3:28 PM RADIO MECHANIC APPRENTICE Visit for screening mammogram from Last 3 Months or Most Recently Relevant to Health Maintenance Results * XR MAMMO MARINO SCREEN BILAT (05/24/2016 3:28 PM RADIO MECHANIC APPRENTICE) Anatomical Region Laterality Modality BREASTS, Breast Left, Breast Right Bilateral Mammography Impressions 05/24/2016 4:55 PM RADIO MECHANIC APPRENTICE ??There is no radiographic evidence for malignancy. ??Recommend annual mammograms. A lay language report of this examination will be provided to the patient. MAMMOGRAM ASSESSMENT: ??ACR 2 Benign Narrative 05/24/2016 4:55 PM RADIO MECHANIC APPRENTICE XR MAMMO MARINO SCREEN BILAT [[id number]] CLINICAL HISTORY: ??This is an asymptomatic 50 y.o. patient. INDICATION FOR EXAM: Mammogram Screening. TECHNIQUE: CC & MLO views were obtained. ??This digital study was evaluated with the assistance of Computer-Aided Detection. Breast Tomosynthesis was used in interpretation. COMPARISON FILMS: Yes 03/06/15 [facility] - 06/09/10 [facility] FINDINGS: ??Mammographically, the breast tissue has scattered fibroglandular densities. ??No suspicious masses or microcalcifications. ?? Benign appearing mass(es) within right breast. Tania Arce MAMMO from Last 3 Months or Most Recently Relevant to Health Maintenance Care Teams Paper Cone Drying Machine Operator Relationship Specialty Start Date End Date Clinic, No Pcp Or . PCP - General 03/27/21
--- OUTSIDE RECORDS SUMMARY | 2023-12-18 10:26 | XMS_ITS | Clinical Summary ---
[facility] Address [address] [place] [address] Care Team Providers Care Electrotyper Name Role Phone Karol Brizuela MD Primary Care Provider [phone] Source Comments You are receiving this document as you are listed as the primary care provider,follow-up provider, or the patient has been referred to you for consultation.This is in compliance with the Medicare andGrant Hospitalcaid EHR Incentive Program,which states Providers who transition their patient to another setting of careor provider of care or refers their patient to another provider of care shouldprovide summary care record for each transition of care or referral. [facility] Allergies No known active allergies Medications Medication Sig Dispensed Refills Start Date End Date Status tretinoin microsphere (AKA RETIN-A MICRO) 0.04 % gel Apply topically nightly. Apply to cleansed and dried skin. Indications: ACNE VULGARIS 45 g 11 03/31/2011 Active PED TNAADIRARRBHO-HR-LR ON OR Take by mouth. 03/31/2011 Active Cholecalciferol (VITAMIN D OR) Take 1 tablet by mouth daily (every 24 hours). 07/23/2015 Active tretinoin (RETIN-A) 0.05 % creamIndications:Ro sacea Apply 1 Application topically nightly. 45 g 3 07/23/2015 Active levothyroxine (AKA SYNTHROID) 112 MCG tabletIndications:A cquired hypothyroidism (HRC) TAKE 1 TABLET BY MOUTH DAILY (EVERY 24 HOURS). 90 tablet 3 07/23/2015 Active mupirocin calcium (BACTROBAN) 2 % creamIndications:Im petigo Apply topically three times a day. 15 g 05/10/2018 Active triamcinolone acetonide (KENALOG) 0.1 % creamIndications:Im petigo Apply topically two times a day. 15 g 05/10/2018 Active tretinoin, Facial Wrinkles, (REFISSA) 0.05 % cream Apply 1 Application topically nightly. LW Addl Instr:Apply to cleansed and dried skin. Indicated for: Acne 135 3 05/10/2010 6 Discontinue d(Reorder) Active Problems Problem Noted Date Diagnosed Date Hypothyroidism 05/05/2010 Overview: Hypothyroidism Acquired Allergic rhinitis 12/14/2002 Overview: Rhinitis Allergic NOS Immunizations Name Administration Dates Next Due Flu Vac Preserv Free (3+yrs) 03/31/2011 Family History Medical History Relation Name Comments Cancer, Breast Negative Family History Cancer, Ovary Negative Family History Social History Tobacco Use Types Packs/Day Years Used Date Smoking Tobacco: Never Smokeless Tobacco: Never Alcohol Use Standard Drinks/Week Comments Yes 0 (1 standard drink = 0.6 oz pur e alcohol) occasional Sex and Gender Information Value Date Recorded Sex Assigned at Not on file Gender Identity Not on file Sexual Orientation Not on file Last Filed Vital Signs Vital Sign Reading Time Taken Comments Blood Pressure 137/86 05/10/2018 11:10 AM CDT Pulse 62 05/10/2018 11:10 AM CDT Temperature 36.4 ??C (97.6 ??F) 05/10/2018 11:10 AM C DT Respiratory Rate 16 05/10/2018 11:10 AM CDT Oxygen Saturation 100% 05/10/2018 11:10 AM CDT Inhaled Oxygen Concentration - - Weight 56.5 kg (124 lb 8 oz) 09/18/2015 2:20 PM IN HOME AIDE Height 158.8 cm (5' 2.5) 03/31/2011 2:29 PM CDT Body Mass Index 22.41 03/31/2011 2:29 PM CDT Plan of Treatment Health Maintenance Due Date Last Done Comments Cervical Cancer Screening Due 1966 Colon Cancer Screening Plan Due 1966 Hep C Screening (Preventive Services) 1966 HIV Screening (Preventive Services) 1982 Adult Preventive Visit 1984 HepB (1) 1985 Cholesterol 2011 Zoster/Shingles (1 of 2) 2016 COVID-19 Vaccine (3 - season) 2023 10/15/2020, 09/17/2020 Influenza (Season Ended) 2024 020, 04/05/2019, 05/14/2018, Additional history exists Mammogram 08/29/2024 08/29/2023, 07/11, 03/30/2021, Additional history exists DTaP/Tdap/Td (3 - Tdap) 03/27/2031 03/27/2021, 05/23 HepA Aged Out 05/23/2007 No longer eligi ble based on patient's age to complete this topic Hib Aged Out No longer eligi ble based on patient's age to complete this topic IPV (Polio) Aged Out No longer eligi ble based on patient's age to complete this topic MCV4 Aged Out No longer eligi ble based on patient's age to complete this topic Pneumococcal Aged Out No longer eligi ble based on patient's age to complete this topic Procedures Procedure Name Priority Date/Time Associated Diagnosis Comments MM MAMMOGRAM SCREENING BILAT W 3D LG W CAD Routine 08/29/2023 8:15 AM IN HOME AIDE from Last 3 Months or Most Recently Relevant to Health Maintenance Results * MM Mammogram Screening Bilat W 3D Lg W CAD (08/29/2023 8:15 AM IN HOME AIDE) Anatomical Region Laterality Modality Breast Bilateral Mammography Impressions 08/29/2023 8:46 AM IN HOME AIDE : ACR BI-RADS Category 1: Negative RECOMMENDATION: Follow Up Imaging in 12 months - Bilateral The results and recommendations of this examination will be communicated to the patient. Narrative 08/29/2023 8:46 AM IN HOME AIDE MM MAMMOGRAM SCREENING BILAT W 3D LG W CAD performed on 08/29/23 Compared to: 08/04/2022 MM Mammogram Screening Bilat W 3D Lg W CAD, 03/30/2021 MM Mammogram Screening Bilat W 3D Lg W CAD, and 02/04/2020 MM Mammogram Screening Bilat W 3D Lg W CAD ?? FINDINGS: Bilateral screening mammogram was performed with the assistance of Computer-Aided Detection and breast tomosynthesis. The breasts have scattered areas of fibroglandular density. There is no radiographic evidence of malignancy. ?? Karol Brizuela MD RAD ISIAH from Last 3 Months or Most Recently Relevant to Health Maintenance Care Teams Electrotyper Relationship Specialty Start Date End Date Karol Brizuela MD [address] [place] [address] PCP - General 07/17/15
--- OUTSIDE RECORDS SUMMARY | 2023-12-18 10:26 | XMS_ITS | Encounter Summary ---
Author Organization [facility] Address [address] [place] [address] Care Team Providers Care Painting And Coating Worker Name Role Phone System, Provider Not In Primary Care Provider Un available Wild Rizo MD Unavailable [phone] Reason for Referral * Diagnostic Imaging XR (Routine) - Pending Review Specialty Diagnoses / Procedures Referred By Contac t Referred To Contact Radiology. Diagnoses Family history of ischemic heart disease Hyperlipidemia LDL goal <100 Nonspecific abnormal electrocardiogram (ECG) (EKG) Procedures Radiologist Consult For Cardiology Wild Rizo MD [address] [place] [address] Referral ID Status Reason Start Date Expiration Date V isits Requested Visits Authorized [id number] Pending Review 09/20/2023 09/19/2024 1 1 * Diagnostic Imaging CT Scan (Routine) - Closed Specialty Diagnoses / Procedures Referred By Contac t Referred To Contact Radiology. Diagnoses Family history of ischemic heart disease Hyperlipidemia LDL goal <100 Nonspecific abnormal electrocardiogram (ECG) (EKG) Procedures CT Coronary Calcium Scan Wild Rizo MD [address] [place] [address] Referral ID Status Reason Start Date Expiration Date Visits Re quested Visits Authorized [id number] Closed 08/25/2023 08/24/2024 1 1 Reason for Visit * Diagnostic Imaging CT Scan (Routine) - Closed Specialty Diagnoses / Procedures Referred By Contac t Referred To Contact Radiology. Diagnoses Family history of ischemic heart disease Hyperlipidemia LDL goal <100 Nonspecific abnormal electrocardiogram (ECG) (EKG) Procedures CT Coronary Calcium Scan Wild Rizo MD [address] [place] [address] Referral ID Status Reason Start Date Expiration Date Visits Re quested Visits Authorized [id number] Closed 08/25/2023 08/24/2024 1 1 Encounter Details Date Type Department Care Team (Latest Contact Info) Description 09/21/2023 12:31 PM CDT - 09/21/2023 11:59 PM CDT Hospital Encounter [facility] [address] [facility] [address] [place] [address] Wild Rizo MD [address] [place] [address] Family history of ischemic heart disease; Hyperlipidemia LDL goal <100; Nonspecific abnormal electrocardiogram (ECG) (EKG) Discharge Disposition: Home or Self Care Social History Tobacco Use Types Packs/Day Years [...] on file documented as of this encounter Medications at Time of Discharge Medication Sig Dispensed Refills Start Date End Date levothyroxine (SYNTHROID/LEVOTHROID) 112 MCG tablet Take 112 mcg by mouth daily rosuvastatin (CRESTOR) 10 MG tabletIndications:Hyperli pidemia LDL goal <100 Take 1 tablet (10 mg) by mouth daily 90 tablet 3 06/14/2023 documented as of this encounter Plan of Treatment Not on file documented as of this encounter Procedures Procedure Name Priority Date/Time Associated Diagnosis Comments RADIOLOGIST CONSULT FOR CARDIOLOGY Routine 09/21/2023 12:57 PM CDT Family history of ischemic heart disease Hyperlipidemia LDL goal <100 Nonspecific abnormal electrocardiogram (ECG) (EKG) CT CALCIUM SCREENING Routine 09/21/2023 12:57 PM CDT Family history of ischemic heart disease Hyperlipidemia LDL goal <100 Nonspecific abnormal electrocardiogram (ECG) (EKG) documented in this encounter Results * Radiologist Consult For Cardiology (09/21/2023 12:57 PM CDT) Anatomical Region Laterality Modality Computed Tomogra phy Impressions 09/21/2023 3:50 PM CDT IMPRESSION: 1. ??No significant soft tissue abnormalities identified. 2. ??Refer to cardiology report regarding cardiac and vascular findings. DARIANA GRAMAJO MD SYSTEM ID: ??[id number] Narrative 09/21/2023 3:50 PM CDT RADIOLOGIST CONSULT [...] vascular findings. DARIANA GRAMAJO MD SYSTEM ID: [id number] Wild Rizo MD IMG DIAGNOSTIC IMAGI NG [...] without incident. Coronary calcification was analyzed using [employer] calcium scoring software. Scan protocol was optimized [...] heart attack and stroke. ? MANAGEMENT The [place] Heart Association/Dutch College of Cardiology (AHA/ACC) 2018 Guideline on [...] appointment with one of our Preventive Cardiologists ([email or web address]). ? References: 1. 2018 AHA/ACC/AACVPR/AAPA/ABC/ACPM/ADA/AGS/APhA/ASPC/NLA/PCNA Guideline on the Management of Blood Cholesterol 2. CAC-DRS: Coronary Artery Calcium Data and Reporting System. An expert consensus document of the Society of Cardiovascular Computed Tomography (SCCT) link MARGIE RODRÍGUEZ MD Procedure Note Margie Rodríguez MD - 09/21/2023 Procedure: CT CALCIUM SCREENING Examination Date: 09/21/2023 12:57 PM Clinical Information: Family history of ischemic heart disease; Hyperlipidemia LDL goal <100; Nonspecific abnormal electrocardiogram (ECG) (EKG) Ordering Provider: Dr. Darrius PROCEDURE: High-resolution, ECG synchronized multi-slice computed tomography was performed without incident. Coronary calcification was analyzed using [employer] calcium scoring software. Scan protocol was optimized [...] heart attack and stroke. ? MANAGEMENT The [place] Heart Association/Dutch College of Cardiology (AHA/ACC) 2018 Guideline on [...] appointment with one of our Preventive Cardiologists ([email or web address]). ? References: 1. 2018 AHA/ACC/AACVPR/AAPA/ABC/ACPM/ADA/AGS/APhA/ASPC/NLA/PCNA Guideline on the Management of Blood Cholesterol 2. CAC-DRS: Coronary Artery Calcium Data and Reporting System. An expert consensus document of the Society of Cardiovascular Computed Tomography (SCCT) link MARGIE RODRÍGUEZ MD Wild Rizo MD IMG CT ORDERABLES documented in this encounter Visit Diagnoses Diagnosis Family history of ischemic heart disease Hyperlipidemia LDL goal <100 Other and unspecified hyperlipidemia Nonspecific abnormal electrocardiogram (ECG) (EKG) documented in this encounter Care Teams Painting And Coating Worker Relationship Specialty Start Date End Date System, Provider Not In PCP - General Clinic 06/14/23 Wild Rizo MD [address] [place] [address] Assigned Heart and Vascular Provider 06/17/23 documented as of this encounter
--- OUTSIDE RECORDS SUMMARY | 2023-12-18 10:26 | XMS_ITS | Encounter Summary ---
Author Organization [facility] Address [facility] [place] [address] Care Team Providers Care Furnace Operator And Tender Name Role Phone System, Provider Not In Primary Care Provider Un available Wild Rizo MD Unavailable [phone] Encounter Details Date Type Department Care Team (Latest Contact Info) Description 10/09/2023 Travel Social History Tobacco Use Types Packs/Day Years [...] on file documented as of this encounter Plan of Treatment Not on file documented as of this encounter Visit Diagnoses Not on filedocumented in this encounter Care Teams Furnace Operator And Tender Relationship Specialty Start Date End Date System, Provider Not In PCP - General Clinic 06/14/23 Wild Rizo MD [address] [facility] [address] [place] [address] Assigned Heart and Vascular Provider 06/17/23 documented as of this encounter
--- OUTSIDE RECORDS SUMMARY | 2023-12-18 10:26 | XMS_ITS | Encounter Summary ---
Author Organization [facility] Address [facility] [place] [address] Care Team Providers Care Mobile Home Installer Name Role Phone System, Provider Not In Primary Care Provider Un available Wild Rizo MD Unavailable [phone] Encounter Details Date Type Department Care Team (Latest Contact Info) Description 09/21/2023 Travel Social History Tobacco Use Types Packs/Day [...] on filedocumented in this encounter Care Teams Mobile Home Installer Relationship Specialty Start Date End Date System, Provider Not In PCP - General Clinic 06/14/23 Wild Rizo MD [address] [facility] [address] [place] [address] Assigned Heart and Vascular Provider 06/17/23 documented as of this encounter
--- OUTSIDE RECORDS SUMMARY | 2023-12-18 10:26 | XMS_ITS | Encounter Summary ---
Author Organization [place] Address [facility] [place] [address] Care Team Providers Care Acid Recovery Operator Name Role Phone Wild Rizo MD Primary Care Provider [phone] System, Provider Not In Primary Care Provider Un available Wild Rizo MD Unavailable [phone] Reason for Visit * Reason Onset Date Comments Appointment 06/13/2023 Add on 06/14/23 Encounter Details Date Type Department Care Team ([facility] st Contact Info) Description 06/13/2023 [facility] [place] [address] [facility] [address] [place] [phone] Wild Rizo MD [address] [facility] [address] [place], [place] [address] Appointment (Add on 06/14/23) Social History Tobacco Use Types Packs/Day Years Used Date Smoking Tobacco: Never Smokeless Tobacco: Never PHQ-2 Answer Date Recorded PHQ-2 Score 0 06/14/2023 Adolescent Education Answer Date Record ed Getting School Help Needed Not on file 04/02 Sex and Gender Information Value Date Recorded Sex Assigned at Not on file Gender Identity Not on file Sexual Orientation Not on file documented as of this encounter Miscellaneous Notes * Telephone Encounter - Vane Lamar - 06/13/2023 12:01 PM CST [facility] Call Center Phone Message May a detailed message be left on voicemail: yes Reason for Call: Other: Patient is schedule for a new patient appt with provider. Patient had records at [facility] and clinic. Thank you Action Taken: Other: cardiology Travel Screening: Not Applicable Thank you! [facility] HEALTH COACH documented in this encounter Plan of Treatment Not on file documented as of this encounter Visit Diagnoses Not on filedocumented in this encounter Care Teams Acid Recovery Operator Relationship Specialty Start Date End Date Wild Rizo MD [address] [place] [address] PCP - General Cardiovascular Disease 06/13/23 3 System, Provider Not In PCP - General Clinic 06/14/23 Wild Rizo MD [address] [place] [address] Assigned Heart and Vascular Provider 06/17/23 documented as of this encounter
--- OUTSIDE RECORDS SUMMARY | 2023-12-18 10:26 | XMS_ITS | Encounter Summary ---
Author Organization [facility] Address [facility] [place] [address] Care Team Providers Care Hairspring I Inspector Name Role Phone System, Provider Not In Primary Care Provider Un available Wild Rizo MD Unavailable [phone] Reason for Visit * Reason Onset Date Comments Appointment 08/28/2023 CT Coronary Calc ium Scan Encounter Details Date Type Department Care Team ([facility] st Contact Info) Description 08/28/2023 [facility] [place] [address] [facility] [address] [place] [phone] Wild Rizo MD [address] [facility] [address] [place], [place] [address] Appointment ( CT Coronary Calcium Scan) Social History Tobacco Use Types Packs/Day Years [...] encounter Miscellaneous Notes * Telephone Encounter - Swati Crowe - 08/28/2023 12:24 PM CST [facility] Call Center Phone Message May a detailed message be left on voicemail: yes Reason for Call: Other: Pt would like to schedule an appt for CT coronary Calcium screening, pleasecall pt back for further coordination. Action Taken: Other: cardiology Travel Screening: Not Applicable Thank you! Special[facility] ING COORDINATOR documented in this encounter Plan of Treatment Not on file documented as of this encounter Visit Diagnoses Not on filedocumented in this encounter Care Teams Hairspring I Inspector Relationship Specialty Start Date End Date System, Provider Not In PCP - General Clinic 06/14/23 Wild Rizo MD [address] [place] [address] Assigned Heart and Vascular Provider 06/17/23 documented as of this encounter
--- OUTSIDE RECORDS SUMMARY | 2023-12-18 10:26 | XMS_ITS | Encounter Summary ---
Author Organization [facility] Address [address] [place] [address] Care Team Providers Care Personal Financial Representative Name Role Phone System, Provider Not In Primary Care Provider Un available Wild Rizo MD Unavailable [phone] Encounter Details Date Type Department Care Team (Late st Contact Info) Description 10/09/2023 9:30 AM CDT Lab [facility] [address] [place] [phone] Hyperlipidemia LDL goal <100 Social History Tobacco Use Types Packs/Day Years [...] Procedure Name Priority Date/Time Associated Diagnosis Comments LIPID PROFILE Routine 10/09/2023 9:32 AM CDT Hyperlipidemia LDL goal <100 ALT Routine 10/09/2023 9:32 AM CDT Hyperlipidemia LDL goal <100 documented in this encounter Results * (ABNORMAL) ALT (10/09/2023 9:32 AM CDT) ALT 51(H) 0 - 50 U/L 10/09/2023 2:3 7 PM CDT [facility] Blood BLOOD SPECIMEN / Unknown Venipuncture / Unknown 10/09/2023 9:32 AM CDT 10/09/2023 9:32 AM CDT Wild Rizo MD LAB - BLOOD ORDERABL ES [facility] [address] [facility], [address] [phone] * Lipid Profile (10/09/2023 9:32 AM CDT) Cholesterol 164 <200 mg/dL 10/09/2023 2:37 PM [...] Rizo MD LAB - BLOOD ORDERABL ES [facility] [address] [facility], [address] [place] [address] documented in this encounter Visit Diagnoses Diagnosis Hyperlipidemia LDL goal <100 Other and unspecified hyperlipidemia documented in this encounter Care Teams Personal Financial Representative Relationship Specialty Start Date End Date System, Provider Not In PCP - General Clinic 06/14/23 Wild Rizo MD [address] [place] [address] Assigned Heart and Vascular Provider 06/17/23 documented as of this encounter
--- OUTSIDE RECORDS SUMMARY | 2023-12-18 10:26 | XMS_ITS | Encounter Summary ---
Author Organization [facility] Address [address] [place] [address] Care Team Providers Care Account Officer Name Role Phone System, Provider Not In Primary Care Provider Un available Wild Rizo MD Unavailable [phone] Reason for Visit * Reason Onset Date Comments Call Back 06/14/2023 Scheduling Encounter Details Date Type Department Care Team (Late st Contact Info) Description 06/14/2023 [facility] Heart [address] [place] [phone] Unknown Call Back (Scheduling) Social History Tobacco [...] * Telephone Encounter - Raza Armenta - 06/14/2023 2:[address] [facility] Call Center Phone Message May a detailed message be left on voicemail: yes Reason for Call: Other: Please reach out to pt to schedule stress test. Action Taken: Other: Cardiology Travel Screening: Not Applicable Thank you! [facility] ODITIES TRADER documented in this encounter Plan of Treatment Not on file documented as of this encounter Visit Diagnoses Not on filedocumented in this encounter Care Teams Account Officer Relationship Specialty Start Date End Date System, Provider Not In PCP - General Clinic 06/14/23 Wild Rizo MD [address] [place] [address] Assigned Heart and Vascular Provider 06/17/23 documented as of this encounter
== END 2023-12-18 10:18 | disposition home or self-care (01) ==
PROVIDERS: PCP Family Medicine; Visit Provider Family Medicine
DX: E03.9 Hypothyroidism, unspecified (principal); Z13.228 Encounter for screening for other metabolic disorders; Z13.220 Encounter for screening for lipoid disorders; Z11.59 Encounter for screening for other viral diseases
CPT/HCPCS: 80053; 80061; 84443; 86803